=== PATIENT | female | born 1980 | race Caucasian/White ===

== ENCOUNTER 2017-01-26 20:00 | Inpatient (IN) | payer OTHER ==
[2017-01-26] MEDS ORDERED: EPSOM SALT 454 GM TP PRN (20:16)
[2017-01-26] MEDS ORDERED: OLIVE OIL 118 ML BTL MISC PRN (20:16)
[2017-01-26] MEDS ORDERED: TERBUTALINE SULFATE 1 MG/ML VIAL IV PRN (20:16)
[2017-01-26] MEDS ORDERED: OXYTOCIN 20 UNIT in LR 1,000 ML IV PRN (20:16)
[2017-01-26] MEDS ORDERED: fentaNYL 2MCG/ML/BUP 0.1% RTU 100 ML BAG EP ONE (20:23)
[2017-01-26] MEDS ORDERED: BUPIVACAINE 0.25% 30 ML SDV ONE (20:23)
[2017-01-26] MEDS ORDERED: PHENYLEPHRINE HCL 100 MCG/ML SYR ONE (20:23)
[2017-01-26 20:46] LABS: % IMMATURE GRANULYOCYTES 0.7 % (0.0-1.1); ABSOLUTE IMMATURE GRANULOCYTES 0.15 10^3/uL (0.00-0.10); ADD DIFF? NO; ADD MORPH? NO; ADD SCAN? NO; ATYPICAL LYMPHOCYTE FLAG 0 (0-99); FRAGMENT RBC FLAG 0 (0-99); HEMATOCRIT 39.2 % (38.0-47.0); HEMOGLOBIN 13.6 g/dL (12.6-16.3); LEFT SHIFT FLG 0 (0-99); LIPEMIA HEMOLYSIS FLAG 90 (0-99); MEAN CELL HEMOGLOBIN 34.3 pg (27.9-34.1); MEAN CELL HEMOGLOBIN CONCENTR. 34.7 g/dL (32.4-36.7); MEAN CELL VOLUME 98.7 fL (81.5-99.8); MEAN PLATELET VOLUME 10.8 fL (8.7-11.7); PLATELET CLUMPS FLAG 10 (0-99); PLATELET COUNT 261 10^3/uL (150-400); RED BLOOD CELL COUNT 3.97 10^6/uL (4.18-5.33); RED CELL DISTRIBUTION WIDTH 13.3 % (11.5-15.2)
[2017-01-26] MEDS: fentaNYL 2MCG/ML/BUP 0.1% RTU 100 ML EP SCH (20:50)
[2017-01-26] MEDS: LR 1,000 ML IV PRN ×2 (20:50→21:51)
--- NOTE | 2017-01-26 21:09 | PREANESOB ---
Obstetric Pre-Anesthesia Info - General Info Proposed Procedure: Labor Epidural : 3 Para: 0 - Info Status: Full Term Monitors: External FHR Pattern: Reassuring - Labor Status Cervical Dilation per last OB SVE: 7 Amniotic Fluid Color: Clear PIH: No Magnesium Sulfate in Use: No Indications for Labor Analgesia: Pain Control Labor Epidural: Yes Anesthesia Allergies/Adverse Reactions: Allergy/AdvReac Type Severity Reaction Status Date / Time ibuprofen Allergy Verified 09/15/15 13:41 Penicillins Allergy Verified 09/15/15 13:41 Home Medications: Medication Instructions Recorded NK [No Known Home Meds] 09/15/15 Visit Medications: Generic Name Dose Route Start Last Admin Trade Name Freq PRN Reason Stop Dose Admin Lactated Ringer's 1,000 mls @ 0 mls/hr 01/26/17 20:16 01/26/17 20:50 Lr IV 07/25/17 20:15 1,000 mls PRN PRN Administration SEE PROTOCOL CONDITIONS Protocol Per Protocol Oxytocin 20 unit/ Lactated 1,002 mls @ 150 mls/hr 01/26/17 20:16 Ringer's IV PRN PRN Post- bleeding Magnesium Sulfate 454 gm 01/26/17 20:16 Epsom Salt TP 07/25/17 20:15 Q1H PRN perineal discomfort Pendleton Oil 118 ml 01/26/17 20:16 Sweet Oil MISC 07/25/17 20:15 ONCE PRN perineal massage Terbutaline Sulfate 0.25 mg 01/26/17 20:16 Brethine IV 07/25/17 20:15 ONCE PRN Tachysystole Discontinued Medications Generic Name Dose Route Start Last Admin Trade Name Freq PRN Reason Stop Dose Admin Bupivacaine HCl Confirm 01/26/17 20:23 Sensorcaine 0.25% Sdv Administered 01/26/17 20:24 Dose 30 ml .ROUTE .STK-MED ONE Fentanyl/Bupivacaine HCl Confirm 01/26/17 20:23 Fentanyl/Bupivacaine/Ns 2 Mcg/Ml 0.1% (Premix Administered 01/26/17 20:24 Dose 100 ml EP .STK-MED ONE Phenylephrine HCl Confirm 01/26/17 20:23 Neosynephrine Administered 01/26/17 20:24 Dose 1,000 mcg .ROUTE .STK-MED ONE - Anesthesia History Response to Local Anesthetics: Normal Anesthesia & Operative History: No Prior Problems Family Anesthesia History: Not Applicable - Social History Substance Use/Abuse: Denies - Focused Exam Height/Weight (Nursing): Height 170.18 cm Weight 66.678 kg Airway: Mallapati I, Respiratory: chest non-tender Cardiovascular: normal peripheral pulses ASA Status: II Labs: 01/26/17 20:07
[2017-01-26] MEDS ORDERED: PHENYLEPHRINE HCL 100 MCG/ML SYR IVP PRN (21:11)
[2017-01-26] MEDS ORDERED: NALOXONE HCL 0.4 MG/ML INJ IVP PRN (21:11)
[2017-01-26] MEDS ORDERED: ONDANSETRON 4 MG/2 ML VIAL IVP PRN (21:11)
[2017-01-26] MEDS ORDERED: LR 500 ML IV SCH (21:30)
[2017-01-26] MEDS: ACETAMINOPHEN 500 MG TAB PO PRN (22:56)
[2017-01-26] MEDS: CALCIUM CARBONATE 500 MG CHEWABLE TAB PO PRN (22:56)
[2017-01-26] MEDS ORDERED: OXYTOCIN/LR *STANDARD DOSE PROTOCOL IV SCH (23:00)
[2017-01-27] MEDS ORDERED: LIDOCAINE 1% 300 MG/30 ML SDV ONE (04:44)
[2017-01-27] MEDS ORDERED: MISOPROSTOL 200 MCG TAB ONE (04:45)
[2017-01-27] MEDS ORDERED: OLIVE OIL 118 ML BTL ONE (04:45)
[2017-01-27] MEDS ORDERED: AMMONIA AROMATIC 1 EACH AMP IH ONE (04:45)
[2017-01-27] MEDS ORDERED: TERBUTALINE SULFATE 1 MG/ML VIAL ONE (04:45)
[2017-01-27] MEDS ORDERED: OXYTOCIN 10 UNIT/ML VIAL ONE (04:45)
[2017-01-27] MEDS: fentaNYL 2MCG/ML/BUP 0.1% RTU 100 ML EP SCH (05:08)
--- NOTE | 2017-01-27 05:14 | GHP ---
[f rep st] HISTORY AND PHYSICAL DATE OF ADMISSION: 01/26/2017 ADMITTING DIAGNOSES: 1. Intrauterine at 39 weeks and 1 day. 2. Spontaneous rupture of membranes, and arrest of dilation. 3. Home transfer. HISTORY OF PRESENT ILLNESS: The patient is a 36-year-old, G3, para 0-0-2-0, at 39-1/7 weeks, with an estimated due date of 02/01/2017, by last menstrual period and confirmed by first-trimester ultrasound. She prevents to Labor and Delivery as a home transfer. [facility] She does present with arrest of dilation at 7 cm per crystal flat grinder, and exhausted. She is having painful contractions, and is requesting an epidural at this time. The patient is GBS unknown and is declining antibiotics at this time. States there is good movement. She ruptured membranes at 3: 30 p.m. on , and clear fluid was noted, with no odor. This was a planned . is complicated by advanced maternal age. She did have negative NIPT testing. She also had a low-lying placenta, which resolved at 32 weeks. Patient is an asthmatic and uses an albuterol inhaler as needed. PAST OBSTETRIC HISTORY: In 2009, she had an SAB. In 2005, she had another SAB. PAST GYNECOLOGICAL HISTORY: Patient denies a history of abnormal Pap smears, most recent in June 2016 was negative. Denies any exposure to any sexually transmitted diseases. Cycles are regular, every 28 days for 4 to 5 days. PAST MEDICAL HISTORY: Remarkable for asthma, exercise/allergy triggered. PAST SURGICAL HISTORY: Tonsillectomy, finger surgery. SOCIAL HISTORY: The patient is . She lives with her . Denies alcohol, tobacco, or illicit drug use. CURRENT MEDICATIONS: Includes calcium/vitamin D supplement, Acworth-3 fish oil, milk of magnesia, and vitamins. ALLERGIES: Penicillin. REVIEW OF SYSTEMS: A 10-point review of systems is negative. Positive pertinents noted in HPI. FAMILY HISTORY: Unremarkable. LABORATORY: Blood type is A positive, antibody negative. RPR nonreactive. HIV negative. Hepatitis B surface antigen nonreactive. TSH is 0.9. GC/chlamydia cultures are negative. Rubella immune. Pap screen negative. GBS is unknown. PHYSICAL EXAMINATION: VITAL SIGNS: On admission, vital signs are stable. Patient is afebrile. GENERAL: Well-nourished, well-developed female. She is tired-looking and in mild distress secondary to contractions. ABDOMEN: Gravid, soft, nontender, nondistended. EXTREMITIES: Normal to inspection without lotus edema or calf tenderness. PELVIC: She is found to be 3-4 cm dilated, 90% effaced, and -1 station. Grossly ruptured. Cephalic On the monitor, there is a Category I strip with a baseline of 130 beats per minute, positive accelerations, no decelerations, moderate variability. She is lawrence irregularly on TOCO. ASSESSMENT: Patient is a 36-year-old, 3, para 0-0-2-0, at 39 weeks 1 day, who presents as a home transfer with spontaneous rupture of membranes and arrest of dilation. PLAN: 1. Admit to Labor and Delivery for expectant management. 2. Had a long conversation with group B strep unknown and prophylactic treatment with antibiotics, and the patient declines prophylactic antibiotic treatment at this time. 3. Patient is requesting an epidural, Will start Pitocin after patient gets comfortable. 4. Anticipate spontaneous vaginal delivery. /[id number]/MODL MTDD
[2017-01-27] MEDS: LR 1,000 ML IV PRN ×3 (06:08→17:45)
[2017-01-27] MEDS ORDERED: D5W LR 1,000 ML IV ONE (07:00)
[2017-01-27 07:02] LABS: ALANINE AMINOTRANSFERASE 32 IU/L (9-52); ALKALINE PHOSPHATASE 135 IU/L (38-126); ANION GAP 14 mEq/L (8-16); ASPARTATE AMINOTRANSFERASE 34 IU/L (14-46); CALCIUM 9.2 mg/dL (8.5-10.4); CARBON DIOXIDE 16 mEq/l (22-31); CHLORIDE 102 mEq/L (97-110); CREATININE 0.6 mg/dL (0.6-1.0); GLOMERULAR FILTRATION RATE > 60; GLUCOSE 108 mg/dL (70-100); POTASSIUM 3.9 mEq/L (3.5-5.2); SODIUM 132 mEq/L (134-144)
[2017-01-27] MEDS: ACETAMINOPHEN 500 MG TAB PO PRN ×2 (07:12→12:46)
[2017-01-27] MEDS: CALCIUM CARBONATE 500 MG CHEWABLE TAB PO PRN ×2 (07:13→13:06)
--- NOTE | 2017-01-27 09:01 | OBPROG ---
Labor Progress Note Assessment/Plan: Assessment: 36 yo WF @ 39.2 with labor and SROM (since 330PM 01/26) Plan: Continue pitocin augmentation 01/27/17 08:59 Objective: 01/26/17 20:07 01/26/17 20:07 Patient ABO/Rh A POSITIVE 01/26/17 20:07 Total Bilirubin 1.0 mg/dL (0.1-1.4) 01/26/17 20:07 AST 34 IU/L (14-46) 01/26/17 20:07 ALT 32 IU/L (9-52) 01/26/17 20:07 VSS - SVE Dilation (cm): 6 Effacement (%): 100 Station: +1 Membranes: SROM Amniotic Fluid Color: Clear Oxytocin Orders Assessment - Pre-Induction/Augmentation Assessment Gestational Age: 39 week(s) and 1 day(s) ICD10 Worksheet Patient Problems: Problems Problem Status Onset Rupture of membranes with delay of delivery Acute - ICD10 Problem Qualifiers (1) Rupture of membranes with delay of delivery
--- NOTE | 2017-01-27 12:01 | OBPROG ---
Labor Progress Note Assessment/Plan: Assessment: 36 yo WF @ 39.2 with labor and SROM (since 330PM 01/26) Plan: Continue pitocin augmentation 01/27/17 08:59 01/27/17 11:59 Awaiting second stage Subjective/Intrapartum Course: 01/27/17 12:00 remains comfortable with epidural, resting in bed Objective: 01/26/17 20:07 01/26/17 20:07 Patient ABO/Rh A POSITIVE 01/26/17 20:07 Total Bilirubin 1.0 mg/dL (0.1-1.4) 01/26/17 20:07 AST 34 IU/L (14-46) 01/26/17 20:07 ALT 32 IU/L (9-52) 01/26/17 20:07 - SVE Dilation (cm): 9 Effacement (%): 100 Station: +1 Membranes: SROM Amniotic Fluid Color: Clear - Contraction Pattern Assessment Current Contraction Pattern: Regular - FHR Assessment Lewis FHR (bpm): 150 FHR Pattern Variability: Moderate FHR Category: 1 (occasional variable, early decel) Oxytocin Orders Assessment - Pre-Induction/Augmentation Assessment Gestational Age: 39 week(s) and 1 day(s) ICD10 Worksheet Patient Problems: Problems Problem Status Onset Rupture of membranes with delay of delivery Acute - ICD10 Problem Qualifiers (1) Rupture of membranes with delay of delivery
--- NOTE | 2017-01-27 14:59 | OBPROG ---
Labor Progress Note Assessment/Plan: Assessment: 36 yo WF @ 39.2 with labor and SROM (since 330PM 01/26) Plan: Continue pitocin augmentation 01/27/17 08:59 01/27/17 11:59 Awaiting second stage 01/27/17 14:57 Completely dilated with +2 station 01/27/17 14:58 Begin pushing / 2nd stage now Subjective/Intrapartum Course: 01/27/17 12:00 remains comfortable with epidural, resting in bed Objective: 01/26/17 20:07 01/26/17 20:07 Patient ABO/Rh A POSITIVE 01/26/17 20:07 Total Bilirubin 1.0 mg/dL (0.1-1.4) 01/26/17 20:07 AST 34 IU/L (14-46) 01/26/17 20:07 ALT 32 IU/L (9-52) 01/26/17 20:07 CE: 10/100/+2 - SVE Dilation (cm): 10 Effacement (%): 100 Station: +2 Membranes: SROM Amniotic Fluid Color: Clear - Contraction Pattern Assessment Current Contraction Pattern: Regular - FHR Assessment Lewis FHR (bpm): 130 FHR Pattern Variability: Moderate FHR Category: 1 Oxytocin Orders Assessment - Pre-Induction/Augmentation Assessment Gestational Age: 39 week(s) and 1 day(s) ICD10 Worksheet Patient Problems: Problems Problem Status Onset Rupture of membranes with delay of delivery Acute - ICD10 Problem Qualifiers (1) Rupture of membranes with delay of delivery
[2017-01-27] MEDS ORDERED: SIMETHICONE 80 MG TAB CHEW PO PRN (16:01)
[2017-01-27] MEDS ORDERED: ACETAMINOPHEN 325 MG TAB PO PRN (16:01)
[2017-01-27] MEDS ORDERED: HYDROCORTISONE 0.5% CREAM TP PRN (16:01)
--- NOTE | 2017-01-27 16:15 | OBDEL ---
Info Type: Vaginal Presentation at Delivery: Vertex L&D Analgesia/Anesthesia Type: Epidural GBS+: No (GBS UNKNOWN, Despite counseling, pt declined GBS prophylaxis during labor) Intrapartum Medications: Generic Name Dose Route Start Last Admin Trade Name Jose De Jesus PRN Reason Stop Dose Admin Acetaminophen 1,000 mg 01/26/17 22:45 01/27/17 12:46 Tylenol PO 07/25/17 22:44 1,000 mg Q6 PRN Administration Pain, Mild/Fever, Can Take PO Calcium Carbonate 500 - 1,000 mg 01/26/17 22:46 01/27/17 13:06 Tums PO 07/25/17 22:45 1,000 mg Q4 PRN Administration ACID REFLUX Lactated Ringer's 1,000 mls @ 0 mls/hr 01/26/17 20:16 01/27/17 12:58 Lr IV 07/25/17 20:15 1,000 mls PRN PRN Administration SEE PROTOCOL CONDITIONS Protocol Per Protocol Fentanyl/Bupivacaine HCl 100 mls @ 0 mls/hr 01/26/17 21:30 01/27/17 05:08 Fentanyl/Bupivacaine/Ns 2 Mcg/Ml 0.1% (Premix EP 02/05/17 21:29 100 mls CONT EDGAR Administration Protocol As Directed Oxytocin 30 unit/ Lactated 503 mls @ 0 mls/hr 01/26/17 23:00 01/26/17 23:06 Ringer's IV 07/25/17 22:59 503 mls CONT EDGAR Administration Protocol Per Protocol Discontinued Medications Generic Name Dose Route Start Last Admin Trade Name Jose De Jesus PRN Reason Stop Dose Admin Dextrose/Lactated Ringer's 1,000 mls @ 125 mls/hr 01/27/17 07:00 01/27/17 06: 34 D5w Lr IV 01/27/17 14:59 1,000 mls ONCE ONE Administration - Hospital Course Intrapartum: 01/27/17 12:00 remains comfortable with epidural, resting in bed Indications for Delivery: Spontaneous Labor Vaginal Delivery - Delivery Provider Delivery Physician/CNM: Evan Arriaza - Labor and Delivery Onset of Contractions Date: 01/25/17 Onset of Contractions Time: 01:20 Onset of Contractions Type: Augmented Rupture of Membranes Date: 01/26/17 Rupture of Membranes Time: 15:30 Rupture of Membranes Type: Spontaneous Amniotic Fluid Color: Clear Laceration: 2nd Degree Repair: 2-0, Vicryl Vaginal Sponge Count Correct: Yes Vaginal Needle Count Correct: Yes Vaginal Sweep Performed: Yes EBL: 300 Delivery Events: None Delivery Comment: of viable male infant. Apgars 8 @ 1 min, 9 @ 5 min. weight pending. Head delivered right occiput anterior. Anterior shoulder was delivered with gentle traction and without difficulty and posterior shoulder also delivered easily. Body and legs followed easily and was placed on mom's chest. was dried with towel, nasopharynx was bulb-suctioned. Second-degree midline vaginal laceration was repaired with 2-0 vicryl. Placenta was delivered and then cord was clamped and cut. Placenta delivered intact and complete, approximately 15 minutes after delivery of --mom had wanted to wait until cord stopped pulsating before she pushed out placenta and clamping of umbilical cord. 3 vessel cord was noted when cord was clamped and cut. Fundus was firm after 20 units of pitocin was given IV after delivery of placenta. A periurethral laceration, small and hemostatic, was noted above urethra but was left alone. No additional lacerations of perineum, vagina or cervix were noted on systematic exam. EBL was 300 mL. Good hemostasis noted. - Medications Labor Augmentation/Induction Methods Used: Pitocin Data Lewis Delivery Date: 01/27/17 Delivery Time: 15:27 Sex of Infant: Male Score (1 Min): 8 Score (5 Min): 9 ICD10 Worksheet Patient Problems: Problems Problem Status Onset Rupture of membranes with delay of delivery Acute Spontaneous vaginal delivery Acute - ICD10 Problem Qualifiers (1) Rupture of membranes with delay of delivery (2) Spontaneous vaginal delivery
[2017-01-27] MEDS ORDERED: OXYTOCIN 20 UNIT in LR 1,000 ML IV SCH (16:30)
[2017-01-27] MEDS: IBUPROFEN 600 MG TAB PO PRN ×2 (16:56→23:07)
[2017-01-27] MEDS: HYDROCODONE/APAP 5/325 TAB PO PRN (20:38)
[2017-01-27] MEDS: DOCUSATE SODIUM 100 MG CAP PO PRN (23:07)
[2017-01-28] MEDS: IBUPROFEN 600 MG TAB PO PRN ×4 (04:56→23:57)
--- NOTE | 2017-01-28 08:53 | OBPP ---
Progress Note Assessment/Plan: Assessment: s/p PPD # 1 - pt is stable Plan: Continue routine pp care Encourage ambulation Plan for d/c home in am 01/2901/28/17 08:50 Subjective/ Course: 01/28/17 08:51 Pt seen and examined. Doing well with no complaints. Some cramping noted blanco with BF. Mod lochia. Dante regular diet, voiding and passing flatus. No BM. BF well so far. Objective: 01/26/17 20:07 01/26/17 20:07 Patient ABO/Rh A POSITIVE 01/26/17 20:07 Total Bilirubin 1.0 mg/dL (0.1-1.4) 01/26/17 20:07 AST 34 IU/L (14-46) 01/26/17 20:07 ALT 32 IU/L (9-52) 01/26/17 20:07 Temp Pulse Resp BP Pulse Ox 36.6 C 71 16 93/55 L 94 01/27/17 22:48 01/27/17 22:48 01/27/17 22:48 01/27/17 22:48 01/27/17 22:48 Uterine Position/Fundal Height: Umbilicus -2 Uterine Tone: Firm Physical Exam - Physical Exam Respiratory: lungs clear, normal breath sounds Cardiac/Chest: regular rate, rhythm Abdomen: normal bowel sounds, non-tender, soft, flatus (+) Extremities: non-tender, normal inspection Skin: normal color, warm/dry Neuro/Psych: alert, normal mood/affect, oriented x 3
[2017-01-28] MEDS: DOCUSATE SODIUM 100 MG CAP PO PRN ×2 (11:32→21:59)
--- NOTE | 2017-01-28 15:36 | POSTANESTH ---
Post Anesthetic Evaluation Cardiovascular Status: Normal, Stable, Similar to Pre-Op Cond Respiratory Status: Normal, Stable, Similar to Pre-op Cond. Level of Consciousness/Mental Status: Can Participate in Eval, Alert and Oriented Pain Control: Adequate, Prn Tx Ordered Nausea/Vomiting Control: Adequate, Prn Tx Ordered Complications Possibly Related to Anesthesia: None Noted (Patient delivered on ; Anesthesia Post-epidural evaluation today. Patient up, ambulating, urinating without evidence of any headache. Baby doing well. Patient happy with epidural experience.)
[2017-01-28] MEDS: HYDROCODONE/APAP 5/325 TAB PO PRN ×2 (16:47→21:59)
[2017-01-28 20:40] VITALS: RESP 16
[2017-01-29] MEDS: HYDROCODONE/APAP 5/325 TAB PO PRN ×2 (05:03→08:58)
[2017-01-29] MEDS: IBUPROFEN 600 MG TAB PO PRN ×2 (06:04→12:04)
[2017-01-29] MEDS: DOCUSATE SODIUM 100 MG CAP PO PRN (08:59)
[2017-01-29 09:05] VITALS: BP 100/63; PULSE 79; TEMP 98.2; O2SAT 94
--- NOTE | 2017-01-29 09:49 | OBPROG ---
Labor Progress Note Assessment/Plan: Assessment: well helped with latch and positioning pain well managed voiding without difficulty vs wnl perineum approximated Plan:discharge to home with instructions ok to fu with previous provider. 4 weeks and 6 weeks, pelvic rest, depression, pain management, contraception, bleeding pattern, infection, pericare, rest, exercise, continuing prenatals, water intake, 01/29/17 09:46 Subjective/Intrapartum Course: 01/27/17 12:00 remains comfortable with epidural, resting in bed 01/29/17 09:45 Doing well. Denies difficulties. PAin well managed. Ready to go home. Denies questions Objective: 01/26/17 20:07 01/26/17 20:07 Patient ABO/Rh A POSITIVE 01/26/17 20:07 Total Bilirubin 1.0 mg/dL (0.1-1.4) 01/26/17 20:07 AST 34 IU/L (14-46) 01/26/17 20:07 ALT 32 IU/L (9-52) 01/26/17 20:07 Temp Pulse Resp BP Pulse Ox 36.8 C 79 16 100/63 94 01/29/17 08:00 01/29/17 08:00 01/29/17 08:00 01/29/17 08:00 01/29/17 08:00 - SVE Membranes: SROM Amniotic Fluid Color: Clear Dilation Complete Date: 01/27/17 Dilation Complete Time: 14:59 - Contraction Pattern Assessment Current Contraction Pattern: Regular Oxytocin Orders Assessment - Pre-Induction/Augmentation Assessment Gestational Age: 39 week(s) and 1 day(s) ICD10 Worksheet Patient Problems: Problems Problem Status Onset Rupture of membranes with delay of delivery Acute Spontaneous vaginal delivery Acute
--- NOTE | 2017-01-29 09:51 | OBPP ---
Progress Note Assessment/Plan: Assessment: well helped with latch and positioning pain well managed voiding without difficulty vs wnl perineum approximated Plan:discharge to home with instructions ok to fu with previous provider. 4 weeks and 6 weeks, pelvic rest, depression, pain management, contraception, bleeding pattern, infection, pericare, rest, exercise, continuing prenatals, water intake, 01/29/17 09:46 Subjective/ Course: 01/28/17 08:51 Pt seen and examined. Doing well with no complaints. Some cramping noted blanco with BF. Mod lochia. Dante regular diet, voiding and passing flatus. No BM. BF well so far. Objective: 01/26/17 20:07 01/26/17 20:07 Patient ABO/Rh A POSITIVE 01/26/17 20:07 Total Bilirubin 1.0 mg/dL (0.1-1.4) 01/26/17 20:07 AST 34 IU/L (14-46) 01/26/17 20:07 ALT 32 IU/L (9-52) 01/26/17 20:07 Temp Pulse Resp BP Pulse Ox 36.8 C 79 16 100/63 94 01/29/17 08:00 01/29/17 08:00 01/29/17 08:00 01/29/17 08:00 01/29/17 08:00 Uterine Position/Fundal Height: At Umbilicus Uterine Tone: Firm Physical Exam - Physical Exam General Appearance: WD/WN, alert, no apparent distress Abdomen: normal bowel sounds, other (ff@u) Extremities: normal range of motion, Floridalma's sign (negative bilaterally) DTR- Lower Extremities: Knee (R): 1+, Knee (L): 1+ (no clonus bilaterally) Skin: normal color, warm/dry Neuro/Psych: no motor/sensory deficits, alert, normal mood/affect, oriented x 3
--- NOTE | 2017-01-29 10:46 | OBGCSDC ---
General Delivery Information - General Info : 3 Para: 1 Abortions: 2 Type: Vaginal L&D Analgesia/Anesthesia Type: Epidural Admission Date: 01/26/17 Labs: Patient ABO/Rh A POSITIVE 01/26/17 20:07 Hct 39.2 % (38.0-47.0) 01/26/17 20:07 - Hospital Course Intrapartum: 01/27/17 12:00 remains comfortable with epidural, resting in bed 01/29/17 09:45 Doing well. Denies difficulties. PAin well managed. Ready to go home. Denies questions : 01/28/17 08:51 Pt seen and examined. Doing well with no complaints. Some cramping noted blanco with BF. Mod lochia. Dante regular diet, voiding and passing flatus. No BM. BF well so far. Vaginal - Delivery Provider Delivery Physician/CNM: Evan Arriaza - Diagnosis Labor: Augmented Rupture of Membranes Type: Spontaneous Amniotic Fluid Color: Clear Laceration: 2nd Degree Repair: 2-0, Vicryl Delivery Events: None - Delivery EBL: 300 Data Lewis Delivery Date: 01/27/17 Delivery Time: 15:27 FRIEDA: 02/01/17 Gestational Age: 39 week(s) and 4 day(s) Sex of Infant: Male Weight (gm): 3546 g Score (1 Min): 7 Score (5 Min): 8 Discharge Information - Discharge Information Prescriptions: Ibuprofen [Motrin (*)] 600 mg PO Q6HRS PRN #30 tab PRN Reason: post , inflammation Condition: Good
== END 2017-01-29 13:15 | disposition home or self-care (01) | DRG 775 ==
LOC: FLD 20:00 → FOB 01-27 20:14
PROVIDERS: ADMIT Obstetrics & Gynecology; ATTEND Obstetrics & Gynecology
PROC: 3E033VJ Introduction of Other Hormone into Peripheral Vein, Percutaneous Approach (ICD-10-PCS; principal; 2017-01-27)
PROC: 10E0XZZ Delivery of Products of Conception, External Approach (ICD-10-PCS; principal; 2017-01-27)
PROC: 0KQM0ZZ Repair Perineum Muscle, Open Approach (ICD-10-PCS; principal; 2017-01-27)
DX: O62.1 Secondary uterine inertia (principal); Z37.0 Single live birth; Z3A.39 39 weeks gestation of pregnancy; O70.1 Second degree perineal laceration during delivery
CPT/HCPCS: J2370; J3105

== ENCOUNTER → 2018-06-09 | Outpatient (CLI) | payer OTHER | LOC: FIMAGING 13:28 | PROVIDERS: ATTEND Family Medicine | DX: Z12.31 Encounter for screening mammogram for malignant neoplasm of breast (principal); Z80.3 Family history of malignant neoplasm of breast ==

== ENCOUNTER 2018-06-15 22:31 | Emergency (ER) | payer OTHER ==
[2018-06-15 23:14] LABS: PLATELET COUNT 244 10^3/uL (150-400)
--- NOTE | 2018-06-15 23:17 | EDPHY ---
General - History Smoking Status: Never smoked Time Seen by Provider: 06/15/18 22:38 Narrative: PHYSICIAN DOCUMENTATION: The patient was evaluated and managed by the Physician Supervisor Compounding And Finishing. My co- signature indicates that I have reviewed this chart and I agree with the findings and plan of care as documented. I am the secondary supervising physician. I reassessed the patient and she was feeling much better after receiving IV fluids. She was able to ambulate without difficulty. Vital signs were normal. She feels well enough to go home and will be discharged with Zofran. (Ellyn Chow) CLINICAL IMPRESSION: Nausea, vomiting, diarrhea, syncopal episode, scalp laceration, closed head injury ASSESSMENT/PLAN: This is a very pleasant 37-year-old female presents to the emergency department with her after she has been nauseous with vomiting and diarrhea since 7: 00 p.m. This evening. Patient then had a presumed vasovagal syncope event at home where she hit her head on a wall and then had reports of jerking movements to the arms and legs. Patient has no reported seizure activity. She is alert, oriented, with no focal neurological deficits on exam. She has a laceration to the right frontal scalp that was repaired as per chart notes below. CT scan of the head and neck show no evidence of intracranial hemorrhage, mass, or C-spine fracture. Patient received 2 L IV fluid, IV antiemetics, and was feeling much better on reassessments. Lab work with a mild leukocytosis, but no significant renal insufficiency or electrolyte imbalance. EKG shows normal sinus rhythm, no acute ST or T-wave changes and was reviewed with Dr. Chow. I suspect the patient suffered a vasovagal episode secondary to dehydration and possibly orthostatic hypotension. Case signed out to Dr. Chow at 0115 pending completion of IV fluids, road test and p.o. Challenge. DIFFERENTIAL DX: Differential diagnosis includes but not limited to vasovagal syncope, first- time seizure, dehydration, electrolyte imbalance, , viral gastroenteritis ED PROCEDURES: See lab and/or imaging results below Laceration Repair Verbal consent obtained by patient. Risks discussed, including but not limited to infection, pain, retained foreign body, need for additional repair, poor cosmetic result, tendon damage, nerve damage, poor wound healing, vascular damage. Alternatives to repair discussed. [place] protocol used to establish correct patient, procedure, equipment, telecommunications support, and site. Anesthesia obtained by topical application. Anesthetized with let. Laceration location right frontal scalp, length 1 cm, depth 2 mm, Repair type simple. Patient was prepped and draped in usual sterile fashion. Hemostasis achieved with direct pressure. Wound explored through full range of motion and entire depth of wound probed and visualized with gloved finger. No suspicion for nerve damage, tendon damage, underlying fracture, vascular damage, foreign body, or contamination. Area was cleansed with Shur-Clens and irrigated with sterile saline as per protocol. No foreign body or material removed. Repair method devan. Two devan placed. Well aligned, closely approximated. wound was dressed with nothing . Patient tolerated well with no immediate complications. Wound care: Clean and dry x 24 hours, gently clean with soap and water, cover with topical antibiotic ointment/bandage. Suture/Staple removal: 10 Days ED COURSE: 12:50 p.m.: I received radiology results from direct Radiology, read by Dr. Ackerman. CT head with no acute intracranial abnormality. CT cervical spine no acute cervical spine fracture identified. Results relayed to the patient and her . She reports she is feeling much better. She has had 2 L of fluid. Would like to try water and ice chips. Labs reviewed. Case discussed with Dr. Chow. EKG with normal sinus rhythm, no acute ST or T-wave changes reviewed with ED attending. CHIEF COMPLAINT: Nausea, vomiting, diarrhea, syncope, headache HPI: This is a otherwise healthy 37-year-old female presents to the emergency department by ambulance after she developed nausea, vomiting and diarrhea around 7:00 p.m. This evening after traveling home from [place] with her . She and her had the same thing to eat today. They went to the [employer]. She was feeling well until the right home. She then developed a mild headache that became worse when she got home. She had multiple episodes of vomiting and diarrhea. Her reports he had turned off the lights to go to bed, she reported she had to get sick again but before he could get her she had fallen forward striking her head on the wall. He then reported that for at least 30 sec she had clenching of both her arms with her elbows flexed, straightened legs that were rigid, eyes open, teeth clenched, and appeared to be having trouble breathing and choking on vomit. No reported history of seizures. Patient reported that she had a severe headache prior to falling but she does not remember the fall. Her reports that she was very confused after she awoke. She is complaining of pain behind the right scapula as well of some left lateral neck pain and numbness in the left hand. She does have a history of migraine headaches. She reports her headache now is much better. She continues to feel nauseous. May recently pulled her IUD and she states there is a small chance she could be . PAST MEDICAL HISTORY: Migraine headaches See nurse/triage notes for additional history if applicable Pertinent Past Surgical History: None reported Family History: Noncontributory Social History: Otherwise healthy, here with her REVIEW OF SYSTEMS: All other systems negative Constitutional: No fever, no chills, positive for appetite change, fatigue. Eyes: No discharge, vision change ENT: No sore throat, congestion, ear pain. Cardiovascular: No chest pain, no palpitations. Respiratory: No cough, no shortness of breath. Gastrointestinal: Positive for abdominal pain, vomiting, and diarrhea. Genitourinary: No hematuria, dysuria, flank pain, pelvic pain Musculoskeletal: No back pain, joint swelling, joint pain, myalgias. Skin: No rashes, color change. Neurological: Positive for headache, dizziness, weakness. PHYSICAL EXAM: General Appearance: Alert, oriented, appropriate, appears very fatigued, has been providing most of her history, cooperative, well hydrated, non-toxic appearing, VSS, no hypoxia. HEENT: Small 1 cm frontal scalp laceration within the hairline, abrasion noted to right forehead, TMs are clear bilaterally no perforation or FB, no injection , no evidence of serous or mucopurulent otitis. Oropharynx clear is no erythema or exudates, no tonsillar hypertrophy or asymmetry. Dentition without abnormality. Eyes: PERRLA, no acute vision change, nystagmus, swelling, discharge, pain or photosensitivity. Conjunctiva pink, no pallor or injection Neck: Supple, nontender, no lymphadenopathy, no midline pain, FROM, no meningismus reproducible left lateral neck pain. No midline neck pain.. Respiratory: There are no retractions, lungs are clear to auscultation. No chest wall pain or rib discomfort. No crepitus Cardiac: Regular rate and rhythm, no murmurs or gallops. Gastrointestinal: Abdomen is soft, generalized tenderness throughout bowel sounds normal, no masses/hernia, no rigidity, guarding or focal peritoneal findings. Neurological: Alert and oriented x 3, CN 2-12 grossly intact, no limb ataxia, DTR's intact, normal sensation and strength Skin: Warm, dry see above Musculoskeletal: Extremities are symmetrical, full range of motion, no tenderness, deformity, swelling, or erythema. Psychiatric: Patient is oriented X 3, there is no agitation. MEDICAL DECISION MAKING: Patient was seen independently. Secondary supervising physician at time of evaluation was Dr. Chow . Diagnosis: Nausea, vomiting, diarrhea, dehydration, syncopal episode. New, requires workup Summary: See Assessment and Plan for summary of ED visit Clinical lab tests: ordered / reviewed. Independent visualization of images, tracing, or specimens: Yes. Decision to obtain medical records or history from someone other than the patient: Patient's Review / Summarize previous medical records: None available Discussed patient with another provider: Dr Chow Patient Progress: Improved. (Arnie Riddle) - Objective Vital Signs: Initial Vital Signs Temperature (C) 37.1 C 06/15/18 22:37 Heart Rate 80 06/15/18 22:37 Respiratory Rate 24 H 06/15/18 22:37 Blood Pressure 101/71 06/15/18 22:37 O2 Sat (%) 96 06/15/18 22:37 O2 Delivery Mode Room Air Allergies/Adverse Reactions: Penicillins Allergy (Verified 09/15/15 13:41) Home Medications: Medication Instructions Recorded Ondansetron Odt [Zofran Odt] 4 mg PO Q4PRN PRN #7 tab 06/16/18 Promethazine HCl [Phenergan] 25 mg PO Q4 #10 tab 06/16/18 Laboratory Results: Laboratory Results 06/15/18 22:35 06/15/18 22:35 Medications Given: Discontinued Medications Sodium Chloride (Ns) 1,000 mls @ 0 mls/hr IV EDNOW ONE; Wide Open PRN Reason: Protocol Stop: 06/15/18 23:51 Last Admin: 06/15/18 23:53 Dose: 1,000 mls Sodium Chloride (Ns) 1,000 mls @ 0 mls/hr IV ONCE ONE; Wide Open PRN Reason: Protocol Stop: 06/16/18 01:41 Last Admin: 06/16/18 01:43 Dose: 1,000 mls Ondansetron HCl (Zofran) 4 mg IVP EDNOW ONE Stop: 06/15/18 23:28 Last Admin: 06/15/18 23:31 Dose: 4 mg Ondansetron HCl (Zofran Odt 4 Mg Prepack#2) 1 btl TAKEHOME EDNOW ONE Stop: 06/16/18 01:07 Last Admin: 06/16/18 01:43 Dose: 1 btl Promethazine HCl (Phenergan) 12.5 mg IVP ONCE ONE Stop: 06/15/18 23:50 Last Admin: 06/15/18 23:53 Dose: 12.5 mg Tetracaine/Epinephrine/Lidocaine (Let Gel Topical) 1 ea TP EDNOW ONE Stop: 06/15/18 23:27 Last Admin: 06/15/18 23:54 Dose: 1 ea Departure - Departure Disposition: Home, Routine, Self-Care Clinical Impression: Nausea and vomiting in adult, Scalp laceration Condition: Good Instructions: Ondansetron (By mouth), Laceration (ED), Acute Nausea and Vomiting (ED) Additional Instructions: DISCHARGE INSTRUCTIONS FROM YOUR DOCTOR Thank you for visiting our emergency department today. Please keep in mind that discharge from the emergency department does not mean that there is nothing wrong - it simply means that we have not identified an emergency condition that requires further evaluation or treatment in the hospital. You should always plan to follow up with primary care for re-evaluation of your condition in the next 2-3 days. If you have been referred to a specialist, please call as soon as possible (today or tomorrow) to schedule your follow up appointment at the appropriate time. PLEASE MAKE A FOLLOW-UP APPOINTMENT WITH HER PRIMARY CARE DOCTOR TOMORROW. CT SCAN OF THE HEAD AND NECK TONIGHT IN THE ED SHOWED NO EVIDENCE OF INTRACRANIAL MASS, INTRACRANIAL BLEEDING, OR SKULL FRACTURE. NO CERVICAL SPINE FRACTURE. NO SIGNIFICANT ELECTROLYTE IMBALANCE, KIDNEYS INSUFFICIENCY, OR SEVERE INFECTION. YOU RECEIVED 2 L OF IV FLUID AND ANTINAUSEA MEDICATION. A PRESCRIPTION FOR NAUSEA MEDICATION WAS PROVIDED. PLEASE MONITOR SYMPTOMS CLOSELY. RETURN TO THE EMERGENCY DEPARTMENT IMMEDIATELY FOR PERSISTENT NAUSEA VOMITING OR DIARRHEA, ABDOMINAL PAIN, FEVER OR CHILLS, SEIZURE ACTIVITY, SEVERE HEADACHES, RECURRENT FAINTING EPISODES, OR ANY OTHER CONCERNS. People present with illnesses and injuries in different ways, and it is always possible that we have missed something. You may always return for re-evaluation if symptoms worsen or if they are not improving or if you develop new/different symptoms. Again, thank you for choosing our emergency department. We hope that you feel better. Referrals: NONE *PRIMARY CARE P,. [Primary Care Provider] - As per Instructions HAYDEN LEE [Non Staff Provider (MD)] - 1-2 days without fail Prescriptions: Ondansetron Odt [Zofran Odt] 4 mg PO Q4PRN PRN #7 tab PRN Reason: Nausea/Vomiting, Can'T Take Po Promethazine HCl [Phenergan] 25 mg PO Q4 #10 tab
[2018-06-15] MEDS ORDERED: LET GEL TOPICAL 1 EA SYR TP ONE (23:26)
[2018-06-15] MEDS ORDERED: ONDANSETRON 4 MG/2 ML VIAL IVP ONE (23:27)
[2018-06-15] MEDS ORDERED: PROMETHAZINE HCL 25 MG/ML INJ IVP ONE (23:49)
[2018-06-15] MEDS ORDERED: NS 1,000 ML IV ONE (23:50)
[2018-06-16] MEDS ORDERED: ONDANSETRON 4MG PREPACK#2 BTL TAKEHOME ONE (01:06)
[2018-06-16] MEDS ORDERED: NS 1,000 ML IV ONE (01:40)
[2018-06-16 02:59] VITALS: BP 84/56
--- NOTE | 2018-06-16 03:25 | CPEKG ---
Test Reason : OPEN Blood Pressure : / mmHG Vent. Rate : 081 BPM Atrial Rate : 078 BPM P-R Int : 184 ms QRS Dur : 094 ms QT Int : 411 ms P-R-T Axes : 073 071 031 degrees QTc Int : 477 ms Sinus rhythm Anteroseptal infarct, age indeterminate Confirmed by Ellyn Chow ([id number]) on 06/16/2018 3:24:41 AM Referred By: Ellyn Chow Confirmed By:Ellyn Chow
== END 2018-06-16 02:59 | disposition home or self-care (01) ==
LOC: EDUNIT#
PROC: 0HQ0XZZ Repair Scalp Skin, External Approach (ICD-10-PCS; principal; 2018-06-15)
DX: S01.01XA Laceration without foreign body of scalp, initial encounter (principal); R11.2 Nausea with vomiting, unspecified; E86.9 Volume depletion, unspecified; W01.198A Fall on same level from slipping, tripping and stumbling with subsequent striking against other object, initial encounter; Y92.9 Unspecified place or not applicable; Y93.9 Activity, unspecified; Y99.9 Unspecified external cause status
CPT/HCPCS: 96374; J2405; J2550